=== PATIENT | male | born 1985 | race Caucasian/White ===

== ENCOUNTER 2018-05-24 09:57 | Emergency (ER) | payer OTHER ==
[~2018-05-24] VITALS: Ht 172.7 cm; Wt 93.0 kg
[2018-05-24] MEDS ORDERED: VALIUM5 MG PO (11:28)
[2018-05-24] MEDS ORDERED: NORCO 5-325 TA1 EACH PO (11:28)
[2018-05-24] MEDS ORDERED: MEDROLDOSEPACK PO (11:28)
[2018-05-24] MEDS ORDERED: TORADOL 10 MG T10 MG PO (11:28)
[2018-05-24 11:49] VITALS: BP 130/84
== END 2018-05-24 11:50 | disposition home or self-care (01) ==
LOC: M.ERS 09:57
DX: M54.5 Low back pain (principal)